=== PATIENT | male | born 1970 | race Two or more races ===

== ENCOUNTER → 2017-10-01 | Outpatient (CLI) | payer OTHER | END | disposition home or self-care (01) | LOC: HKI 09:12 | DX: M23.251 Derangement of posterior horn of lateral meniscus due to old tear or injury, right knee (principal) | CPT/HCPCS: 73564; 73564-RT ==

== ENCOUNTER → 2018-02-11 | Outpatient (CLI) | payer OTHER | END | disposition home or self-care (01) | LOC: HKI 10:01 | DX: M17.11 Unilateral primary osteoarthritis, right knee (principal); S83.281D Other tear of lateral meniscus, current injury, right knee, subsequent encounter; X58.XXXD Exposure to other specified factors, subsequent encounter | CPT/HCPCS: 73562; 73562-RT ==

== ENCOUNTER → 2018-03-05 | Outpatient (CLI) | payer OTHER | END | disposition home or self-care (01) | LOC: HKI 09:35 | DX: M25.561 Pain in right knee (principal); M17.11 Unilateral primary osteoarthritis, right knee | CPT/HCPCS: 20610 ==